=== PATIENT | male | born 1955 | race Caucasian/White ===

== ENCOUNTER 2017-10-25 09:00 | Outpatient (RCR) | payer OTHER ==
[~2017-10-25 09:00] MED LIST: ASPI-1471 PO; AZIT500T47 PO; CEFU500T10 PO; DABI75CA4 PO; DOCU100T13 PO; ENOX120D5 SQ; IBUP-1618 PO; LUTE20TA PO; LUTE6CAP11 PO; MULT-1027 PO; MULT1TAB54 PO; MULTIVITAMINS; OXYC-854 PO; PER PO; SAW450CA3 PO; SAW80CAP4 PO; WARF-1 PO; WHEA1POW10 PO
== END 2017-11-29 ==
LOC: RESP 09:00
PROVIDERS: ATTEND Family Medicine
DX: R06.02 Shortness of breath (principal); I26.99 Other pulmonary embolism without acute cor pulmonale
CPT/HCPCS: G0239; G0424